=== PATIENT | male | born 1955 | race Caucasian/White ===

== ENCOUNTER → 2017-07-08 | Outpatient (CLI) | payer MEDICARE, MEDICAID ==
[~2017-07-08] MED LIST: HYDR12.53 PO; LISI40TA PO
[2017-07-08 12:15] LABS: BASOPHILS # (AUTO) 0.05 x10^3/uL (0-0.1); BASOPHILS % (AUTO) 0 % (0-1); EOSINOPHILS # (AUTO) 0.25 x10^3/uL (0-0.4); EOSINOPHILS % (AUTO) 2 % (1-7); LYMPHOCYTES # (AUTO) 3.29 x10^3/uL (1-3.4); LYMPHOCYTES % (AUTO) 23 % (22-44); MD NO; MEAN CORPUSCULAR HEMOGLOBIN 30.4 pg (27.5-34.5); MEAN CORPUSCULAR HGB CONC 33.1 g/dL (33.2-36.2); MEAN CORPUSCULAR VOLUME 91.9 fL (81-97); MONOCYTES # (AUTO) 1.12 x10^3/uL (0.2-0.8); MONOCYTES % (AUTO) 8 % (2-9); NEUTROPHILS # (AUTO) 9.82 x10^3/uL (1.8-6.8); NEUTROPHILS % (AUTO) 68 % (42-75); PLATELET COUNT 280 x10^3/uL (130-400); RED CELL DISTRIBUTION WIDTH 14.6 % (9.4-14.8)
[2017-07-08 12:24] LABS: CHLORIDE 103 mmol/L (98-107); PROTHROMBIN TIME 10.4 Seconds (9.6-11.5)
[2017-07-08 12:34] LABS: ALANINE AMINOTRANSFERASE 46 U/L (12-78); ALKALINE PHOSPHATASE 101 U/L (45-117); ANION GAP 7 mmol/L (5-15); BILIRUBIN,TOTAL 0.8 mg/dL (0.2-1.0); CALCIUM 9.2 mg/dL (8.5-10.1); CREATININE 1.14 mg/dL (0.7-1.3); TOTAL PROTEIN 8.8 g/dL (6.4-8.2)
== END | disposition home or self-care (01) ==
LOC: STAR 10:44
PROVIDERS: ATTEND Orthopaedic Surgery
DX: Z01.818 Encounter for other preprocedural examination (principal); M16.12 Unilateral primary osteoarthritis, left hip
CPT/HCPCS: 36415; 80053; 83036; 85025; 85610; 85730; 87081; 93005

== ENCOUNTER 2017-07-16 10:56 | Inpatient (IN) | payer MEDICARE, MEDICAID ==
[~2017-07-16] VITALS: Ht 170.2 cm; Wt 74.6 kg
[~2017-07-16 10:56] MED LIST changes: +EPINEPHRINE 1 MG/ML, 1ML ONE; +KETOROLAC 60 MG/2 ML ONE; +ROPIvacaine/PF 0.5%, 20 ML ONE; +SODIUM CHLORIDE 0.9% 100 ML ONE; +TRANEXAMIC ACID 100 MG/ML, 10ML ONE; +VANCOMYCIN 1,000 MG ONE
[2017-07-16] MEDS ORDERED: VANCOMYCIN PER PHARMACY MC ONE (12:58)
[2017-07-16] MEDS ORDERED: MIDAZOLAM 1 MG/ML, 2ML ONE (13:09)
[2017-07-16] MEDS ORDERED: FENTANYL PF 250 MCG/5ML ONE (13:09)
[2017-07-16] MEDS ORDERED: ROCURONIUM 10MG/ML,5ML ONE (13:12)
[2017-07-16] MEDS ORDERED: PROPOFOL 10 MG/ML, 20ML ONE (13:12)
[2017-07-16] MEDS ORDERED: ACETAMINOPHEN 500 MG TABLET PO ONE (13:30)
[2017-07-16] MEDS ORDERED: VANCOMYCIN 1,500 MG in SODIUM CHLORIDE 0.9% 250 ML IV ONE (13:30)
[2017-07-16] MEDS ORDERED: PHARMACOKINETIC CONSULTATION MC ONE (13:30)
[2017-07-16] MEDS ORDERED: GABAPENTIN 300 MG CAPSULE PO ONE (13:30)
[2017-07-16] MEDS ORDERED: GABAPENTIN 300 MG CAPSULE ONE (13:31)
[2017-07-16] MEDS ORDERED: ACETAMINOPHEN 500 MG TABLET ONE (13:32)
[2017-07-16] MEDS: NS + 20MEQ KCL 1,000 ML IV SCH (13:38)
[2017-07-16] MEDS ORDERED: GLYCOPYRROLATE 0.2MG/1ML, 5ML ONE (13:53)
[2017-07-16] MEDS ORDERED: NEOSTIGMINE 1 MG/ML, 10ML ONE (13:53)
[2017-07-16] MEDS ORDERED: HYDROcodone/APAP 5/325 TABLET PO PRN (14:00)
[2017-07-16] MEDS ORDERED: MAGNESIUM HYDROXIDE 8%, 30ML UDC PO PRN (14:00)
[2017-07-16] MEDS: CEFAZOLIN PMX 2GM/50ML 50 ML IVPB SCH ×2 (14:00→22:23)
[2017-07-16] MEDS ORDERED: ACETAMINOPHEN 650 MG/20.3 ML UDC PO PRN (14:00)
[2017-07-16] MEDS ORDERED: SENNA/DOCUSATE TABLET PO PRN (14:00)
[2017-07-16] MEDS ORDERED: ZOLPIDEM 5MG TABLET PO PRN (14:00)
[2017-07-16] MEDS ORDERED: SCOPOLAMINE PATCH, 1.5MG PATCH.TD72 TD ONE (14:00)
[2017-07-16] MEDS ORDERED: BISACODYL 10 MG SUPP PR PRN (14:00)
[2017-07-16] MEDS ORDERED: DIPHENHYDRAMINE 50 MG CAPSULE PO PRN (14:00)
[2017-07-16] MEDS ORDERED: DEXAMETHASONE 4 MG/ML, 1ML ONE ×2 (14:00)
[2017-07-16] MEDS ORDERED: ONDANSETRON 4 MG TABLET PO PRN (14:00)
[2017-07-16] MEDS ORDERED: ONDANSETRON 2MG/ML, 2ML IV PRN (14:00)
[2017-07-16] MEDS ORDERED: CEFAZOLIN 1,000 MG ONE (14:01)
[2017-07-16] MEDS ORDERED: ONDANSETRON 2MG/ML, 2ML ONE (15:06)
[2017-07-16] MEDS ORDERED: OXYcodone 5 MG/5 ML ORAL.SOL UDC ONE (15:37)
[2017-07-16] MEDS ORDERED: FENTANYL PF 100 MCG/2ML ONE ×2 (15:37→16:15)
[2017-07-16] MEDS: FENTANYL PF 100 MCG/2ML IV PRN ×3 (15:43→16:17)
[2017-07-16] MEDS ORDERED: HYDROmorphone 2 MG/ML, 1ML ONE (15:45)
[2017-07-16] MEDS: HYDROmorphone 1 MG/ML, 1ML IV PRN ×4 (15:48→16:22)
[2017-07-16] MEDS ORDERED: PROMETHAZINE 25 MG SUPP PR PRN (16:00)
[2017-07-16] MEDS ORDERED: HYDROcodone/APAP 7.5-325MG/15ML UDC PO PRN (16:00)
[2017-07-16] MEDS ORDERED: PROMETHAZINE 25 MG/ML, 1ML IV PRN (16:00)
[2017-07-16] MEDS ORDERED: MEPERIDINE/PF 25MG/0.5ML IVPush PRN (16:00)
[2017-07-16] MEDS ORDERED: OXYcodone 5 MG/5 ML ORAL.SOL UDC PO PRN (16:00)
[2017-07-16] MEDS ORDERED: MORPHINE SULFATE 4 MG/ML, 1ML IVPush PRN (16:00)
[2017-07-16] MEDS ORDERED: LABETALOL 5MG/ML, 20ML IV PRN (16:00)
[2017-07-16] MEDS ORDERED: hydrALAzine 20 MG/ML, 1ML IV PRN (16:00)
[2017-07-16] MEDS ORDERED: HYDROmorphone 2 MG/ML, 1ML IV PRN (16:47)
[2017-07-16] MEDS: ASPIRIN 81 MG TABLET EC PO SCH (18:41)
[2017-07-16 19:12] VITALS: BP 111/71
[2017-07-16] MEDS: DOCUSATE 100 MG CAPSULE PO SCH (21:00)
[2017-07-16 23:53] VITALS: BP 108/68
[2017-07-17] MEDS: NS + 20MEQ KCL 1,000 ML IV SCH (01:42)
[2017-07-17] MEDS: OXYcodone IR 5MG TABLET PO PRN ×2 (01:49→05:23)
[2017-07-17 03:03] VITALS: BP 104/68
[2017-07-17] MEDS ORDERED: DEXAMETHASONE 4 MG/ML, 1ML IVPush SCH (06:00)
[2017-07-17] MEDS: ASPIRIN 81 MG TABLET EC PO SCH (06:02)
[2017-07-17] MEDS ORDERED: CEFAZOLIN PMX 2GM/50ML 50 ML IVPB ONE (06:30)
[2017-07-17 07:13] VITALS: BP 102/74
[2017-07-17] MEDS ORDERED: LISINOPRIL 20 MG TABLET PO SCH (09:00)
[2017-07-17] MEDS ORDERED: HYDROCHLOROTHIAZIDE 12.5 MG CAPSULE PO SCH ×2 (09:00)
[2017-07-17] MEDS: DOCUSATE 100 MG CAPSULE PO SCH (09:18)
[2017-07-17] MEDS ORDERED: MELO7.5T31 PO (09:38)
[2017-07-17] MEDS ORDERED: OXYC5TAB3 PO (09:38)
[2017-07-17] MEDS ORDERED: TRAM50TA2 PO (09:39)
== END 2017-07-17 10:19 | disposition home or self-care (01) | DRG 469 ==
LOC: ORIP 12:51 → 4NOR 17:33
PROVIDERS: ADMIT Orthopaedic Surgery; ATTEND Orthopaedic Surgery
PROC: 0SRB06A Replacement of Left Hip Joint with Oxidized Zirconium on Polyethylene Synthetic Substitute, Uncemented, Open Approach (ICD-10-PCS; principal; 2017-07-16 14:45)
DX: M16.12 Unilateral primary osteoarthritis, left hip (principal); J96.21 Acute and chronic respiratory failure with hypoxia; M87.852 Other osteonecrosis, left femur; M87.9 Osteonecrosis, unspecified; Z79.82 Long term (current) use of aspirin; I10 Essential (primary) hypertension; Z72.0 Tobacco use
CPT/HCPCS: 36415; 72170; 76000; 85014; 85018; C1713; J0171; J0690; J1100; J1170; J1885; J2250; J2405; J2704; J2710; J2795; J3010; J3370; J3480; J3490; Q0162; C1776